=== PATIENT | female | born 1980 | race Caucasian/White ===

== ENCOUNTER 2019-05-31 12:18 | Emergency (ER) | payer OTHER, MEDICAID ==
[~2019-05-31] VITALS: Ht 154.9 cm; Wt 56.2 kg
[2019-05-31] MEDS ORDERED: PROAIR HFA8.5 GM INH (12:24)
[2019-05-31] MEDS ORDERED: COZAAR 25 MG TA25 M1 PO ×3 (12:25→12:28)
[2019-05-31] MEDS ORDERED: LEVO-T50 MCG PO (12:25)
[2019-05-31] MEDS ORDERED: LEVO-T100 MCG PO (12:26)
[2019-05-31] MEDS ORDERED: XANAX 0.5 MG0.5 M1 PO (12:26)
[2019-05-31] MEDS ORDERED: CHILDREN'S ZYRT10 M1 PO (12:26)
[2019-05-31] MEDS ORDERED: ZANTAC 150MG T150 M1 PO (12:27)
[2019-05-31] MEDS ORDERED: ZOFRAN ODT4 MG SUBLING (12:38)
[2019-05-31 12:45] LABS: URINE BLOOD NEGATIVE (Negative); URINE CLARITY CLEAR; URINE COLOR YELLOW; URINE GLUCOSE-RANDOM TRACE (Negative); URINE KETONES 2+ (Negative); URINE LEUKOCYTES-REFLEX NEGATIVE (Negative); URINE NITRITE-REFLEX NEGATIVE (Negative); URINE PROTEIN 2+ (Negative); URINE SPECIFIC GRAVITY 1.025 (1.005-1.030); URINE UROBILINOGEN 0.2 E.U./dl (0.2-1.0)
[2019-05-31 12:46] LABS: URINE BILIRUBIN 1+ (Negative)
[2019-05-31 12:47] LABS: ABSOLUTE BASOPHILS 0.1 thou/uL (0.0-0.2); ABSOLUTE LYMPHOCYTES 1.6 thou/uL (0.8-5.3); ABSOLUTE MONOCYTES 0.5 thou/uL (0.0-1.2); ABSOLUTE NEUTROPHILS 12.7 thou/uL (1.6-8.1); BASOPHILS 0.7 %; EOSINOPHILS 0.3 %; HEMATOCRIT 36.6 % (37.0-47.0); HEMOGLOBIN 12.8 gm/dL (12.0-15.0); LYMPHOCYTES 10.4 %; MCH 32.7 pg (26.0-34.0); MCV 93.2 fL (80.0-100.0); MONOCYTES 3.7 %; MPV 8.5 fl. (7.2-11.1); NUCLEATED RBCS 0 /100WBC; PLATELET COUNT* 401 thou/uL (150-400); POLYS 84.9 %; RBC 3.92 mil/uL (4.20-5.00); RDW-CV 13.1 % (10.5-14.5); WBC 14.9 thou/uL (4.0-11.0)
[2019-05-31 12:49] LABS: ICTOTEST (BILI CONFIRMATORY) Negative (Negative)
[2019-05-31 12:54] LABS: CASTS None Seen /LPF (None Seen); CRYSTALS None Seen /LPF (None Seen); SQUAMOUS 0-3 Few /LPF (0-3); URINE RBC 0-2 Rare /HPF (0-2)
[2019-05-31 13:03] LABS: CREATININE 0.9 mg/dL (0.6-1.3); POTASSIUM 3.5 mmol/L (3.5-5.1)
[2019-05-31 13:07] LABS: ALBUMIN 4.4 g/dL (3.4-5.0); TOTAL BILIRUBIN 0.4 mg/dL (<0.1-1.0); TOTAL PROTEIN 7.1 g/dL (6.4-8.2)
[2019-05-31] MEDS ORDERED: CIPROFLOXACIN500 M1 PO (14:48)
[2019-05-31 15:00] VITALS: BP 125/62
== END 2019-05-31 15:01 | disposition home or self-care (01) ==
LOC: M.ERS 12:18
PROVIDERS: Family Medicine
DX: N39.0 Urinary tract infection, site not specified (principal); R11.2 Nausea with vomiting, unspecified; I10 Essential (primary) hypertension; E03.9 Hypothyroidism, unspecified; F41.9 Anxiety disorder, unspecified; K21.9 Gastro-esophageal reflux disease without esophagitis; Z86.2 Personal history of diseases of the blood and blood-forming organs and certain disorders involving the immune mechanism; Z91.040 Latex allergy status